=== PATIENT | female | born 2000 | race Caucasian/White ===

== ENCOUNTER 2023-01-12 15:05 | Outpatient (CLI) | payer BC, SELFPAY | END 2023-01-12 15:06 | disposition home or self-care (01) | PROVIDERS: PCP Family Medicine; Visit Provider Family Medicine | DX: F32.A Depression, unspecified (principal); F41.9 Anxiety disorder, unspecified; Z90.411 Acquired partial absence of pancreas | CPT/HCPCS: 82306; 84443 ==

== ENCOUNTER 2023-09-25 11:35 | Outpatient (CLI) | payer BC, SELFPAY | END 2023-09-25 11:36 | disposition home or self-care (01) | LOC: NFLDREF 11:39 | PROVIDERS: PCP Family Medicine; Visit Provider Family Medicine | DX: E78.2 Mixed hyperlipidemia (principal) | CPT/HCPCS: 80061 ==

== ENCOUNTER 2023-12-25 23:21 | Emergency (ER) | payer BC, SELFPAY ==
[2023-12-25 23:29] VITALS: BP 118/83; PULSE 70; RESP 18; TEMP 36.7; O2SAT 97; BMI 36.6
--- NOTE | 2023-12-26 00:05 | ED_ITS ---
HPI - General Adult General Chief complaint: Heartburn/Gastritis Stated complaint: bio reflux-6 days Time Seen by Provider: 12/25/23 23:38 Source: patient Mode of arrival: ambulatory Limitations: no limitations History of Present Illness HPI narrative: 23-year-old female with longstanding history of gastroesophageal reflux disease presents to the emergency department for evaluation of worsening heartburn and gastric reflux with decreased appetite for the last couple of days. No vomiting. No bloody stools. No excessive alcohol intake. No chest pain. Pain starts in the epigastric area, radiates up to the throat. Does not seem to be caused by certain foods. Does take a proton pump inhibitor daily and has done so for the last 8 weeks. Had previously been prescribed this long-term. She reports that she has had stomach issues since she was 8 years old. She had an endoscopy and colonoscopy at age 14. She does not know if she was tested for celiac disease or H pylori at the time but it sounds as though she has had a very comprehensive workup. 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 This was fully resected and she reports that she had a follow-up CT scan 2-3 weeks ago that was normal. She reports that she has had difficulty eating for the last few days and that her gastritis has been more bothersome over the last 6 days. Has not tried taking any new medications to help with her symptoms. No fever, no urinary changes. No recent medication changes. No trauma or injury. Past medical history notable for the gastritis, depression and anxiety, the pancreatic history. She is status post cholecystectomy at the time of her splenectomy and partial pancreatectomy. Home meds accurate as listed per her report. ROS is otherwise positive for symptoms that she thinks could be related to POTS. She is interested in further workup for this. Otherwise benign times 12 systems. Related Data Home Medications Medication Instructions Recorded Confirmed hydroxyzine pamoate 25 mg capsule 25 mg PO BID 01/12/23 12/25/23 polyethylene glycol 3350 17 gram 17 g PO BID 01/12/23 12/25/23 oral powder packet (Miralax) cholecalciferol (vitamin D3) 25 25 mcg PO QDAY 09/25/23 12/25/23 mcg (1,000 unit) capsule sertraline 100 mg tablet 125 mg PO DAILY 11/20/23 02/19/24 omeprazole 20 mg capsule,delayed 20 mg PO DAILY 12/25/23 12/25/23 release Previous Rx's Medication Instructions Recorded famotidine 20 mg tablet (Acid 20 mg PO QHS #30 tabs 12/26/23 Controller) sucralfate 1 gram tablet (Carafate) 1 g PO QID PRN #60 tabs 12/26/23 Allergies Allergy/AdvReac Type Severity Reaction Status Date / Time amoxicillin Allergy Mild Rash Verified 12/25/23 23:37 PFSH PFS Social History Smoking Status: Never smoker Do you use any of these nicotine containing products: None Second hand tobacco smoke exposure: No How often do you have a drink containing alcohol: never AUDIT-C Alcohol total score: 0 Non-prescribed substance use: marijuana (any form) Little interest or pleasure in doing things: nearly every day Feeling down, depressed, or hopeless: nearly every day Exam Const: Vital Signs, click to edit/add: Vital Signs - 24 hr 12/25/23 23:29 Temperature 98.0 F Pulse Rate [Pulse Oximeter] 70 Respiratory Rate 18 Blood Pressure [Ri ght Upper Arm] 118/83 Pulse Oximetry 97 Oxygen Delivery Me thod Room Air Documenting provider has reviewed patient's vital signs: yes Common normals: no apparent distress General appearance: cooperative and well kempt Other: Appears well nourished, well hydrated. HENMT: Common normals: normocephalic and head/scalp atraumatic Head and scalp: normocephalic and atraumatic Face and sinus: normal facial exam Mouth: oral and palatal mucosa normal Throat: posterior oropharynx normal Eye: Common normals: conjunctivae normal General eye: normal appearance of both eyes Conjunctiva: conjunctiva(e) normal Neck & C-Spine: Common normals: full ROM and no lymphadenopathy Resp: Common normals: normal respiratory effort, no use of accessory muscles and clear to auscultation bilaterally Effort & inspection: able to speak in complete sentences Auscultation: clear to auscultation bilaterally Cardio: Common normals: regular rate, regular rhythm, S1 normal heart sound, S2 normal heart sound and no murmurs Rate: regular rate Rhythm: regular rhythm Heart sounds: S1 normal and S2 normal GI: Common normals: Normal to inspection, nondistended, normoactive bowel sounds present, soft to palpation, non-tender, no hepatosplenomegaly and no masses Palpation: soft and no hepatosplenomegaly Extremity: Common normals: normal to inspection, normal capillary refill and no pedal edema Psych: Appearance: well kempt Activity/motor behavior: appropriate eye contact Insight: insight good Judgement: judgment good Other: Seems mildly anxious but otherwise with normal judgment, reasoning and behavior. Skin: Common normals: no rashes or lesions noted General skin exam: no rashes or lesions noted Course Course ED Course: Reported GERD and heartburn with no symptoms of vomiting or signs of evident dehydration on exam. She is quite concerned and has a curious history. Therefore recommend some basic labs including liver function, lipase, metabolic panel, inflammatory markers and CBC. I do suspect that this is gastritis related to heartburn. Will give famotidine, Maalox and Carafate and assess symptom response. There is not seem to be any indication for IV fluids. Await labs. Reevaluation(s) Time of Reevaluation #1: 01:05 Reevaluation #1: Patient informed of reassuring labs. She is feeling better after the famotidine, Maalox and Carafate. We discussed dietary recommendations for gastritis. It does not seem as though this is a big factor for her. Encouraged her to continue her omeprazole in the morning, at in famotidine 20 mg every evening. P.r.n. Carafate discussed. Alarm symptoms reviewed that would warrant ED presentation. Patient will follow-up with primary care provider if symptoms are not markedly improved in a few weeks. She may discontinue the famotidine in a few weeks if she is feeling much better and restarted on an as-needed basis. She should stay on the omeprazole however. See discharge instructions. Vital Signs Vital signs: Initial Vital Signs Temperature 98.0 F 12/25/23 23:29 Temperature Source Temporal Artery Scan 12/25/23 23:29 Pulse Rate 70 12/25/23 23:29 Respiratory Rate 18 12/25/23 23:29 Blood Pressure 118/83 12/25/23 23:29 Blood Pressure Mean 94 12/25/23 23:29 Blood Pressure Position Sitting 12/25/23 23:29 Pulse Oximetry 97 12/25/23 23:29 Oxygen Delivery Method Room Air 12/25/23 23:29 Vital Signs Temperature 98.0 F 12/25/23 23:29 Pulse Rate 70 12/25/23 23:29 Respiratory Rate 18 12/25/23 23:29 Blood Pressure 118/83 12/25/23 23:29 Pulse Oximetry 97 12/25/23 23:29 Oxygen Delivery Method Room Air 12/25/23 23:29 Temperature 98.0 F 12/25/23 23:29 Pulse Rate 70 12/25/23 23:29 Respiratory Rate 18 12/25/23 23:29 Blood Pressure 118/83 12/25/23 23:29 Pulse Oximetry 97 12/25/23 23:29 Oxygen Delivery Method Room Air 12/25/23 23:29 Medications Administered Medications: Discontinued Medications Generic Name Dose Route Start Last Admin Trade Name Freq PRN Reason Stop Dose Admin Famotidine 20 mg 12/26/23 00:01 12/26/23 00:18 Famotidine 20 Mg Tablet PO 12/26/23 00:02 20 mg ONCE ONE Administration Lidocaine/Aluminum/Magnesium/Simeth 15 ml 12/26/23 00:01 12/26/23 00:20 Mag Hydrox/Aluminum Hyd/Simeth 30 Ml Oral.Susp PO 12/26/23 00:02 15 ml ONCE ONE Administration Sucralfate 1 gm 12/26/23 00:01 12/26/23 00:18 Sucralfate 1 Gm Tablet PO 12/26/23 00:02 1 gm ONCE ONE Administration Medical Decision Making Lab Data Lab results reviewed: Yes I reviewed the patient's lab results Lab results narrative: Reassuring. Labs: Lab Results 12/26/23 12/26/23 Range/Units 00:00 00:20 WBC 12.27 H (4.50-11.00) K/uL RBC 4.61 (4.00-5.20) m/uL Hgb 13.3 (12.0-16.0) gm/dL Hct 40.3 (33.0-51.0) % MCV 87 (80-100) fL MCH 29 (26-34) pg MCHC 33 (32-36) gm/dL RDW Coeff of Jaylen 14.7 (11.5-15.5) % Plt Count 498 H (140-440) K/uL Neut % (Auto) 49.7 (42.0-72.0) % Lymph % (Auto) 38.6 (20-44) % [place] % (Auto) 8.5 (0.0-11.0) % Eos % (Auto) 2.3 (0.0-7.0) % Baso % (Auto) 0.7 (0.0-3.0) % Neut # (Auto) 6.10 (1.7-7.0) K/uL Lymph # (Auto) 4.70 H (0.90-2.90) K/uL [place] # (Auto) 1.00 H (0.00-0.90) K/UL Eos # (Auto) 0.30 (0.00-0.50) K/uL Baso # (Auto) 0.10 (0.00-0.30) K/uL Abs Immat Gran (auto) 0.00 (0.00-0.30) K/uL Imm/Tot Granulo (auto) 0.2 % Sodium 140 (135-149) mmol/L Potassium 3.8 (3.6-5.1) mmol/L Chloride 103 (96-114) mmol/L Carbon Dioxide 31 (20-32) mmol/L Anion Gap 6 L (7-15) mEq/L BUN 16 (5-24) mg/dL Creatinine 0.7 (0.5-1.5) mg/dL Estimated Creat Clear 126.09 Estimated GFR 125 ml/min Glucose 100 (60-115) mg/dL Lactate 0.6 (0.5-1.9) mmol/L Calcium 9.7 (8.4-10.6) mg/dL Total Bilirubin 0.3 (0.1-1.5) mg/dL AST 19 (12-35) U/L ALT 17 (4-35) U/L Alkaline Phosphatase 74 (40-150) U/L C-Reactive Protein < 0.5 L (0.5-1.0) mg/dL Total Protein 7.7 (6.0-8.3) g/dL Albumin 4.2 (3.3-5.0) g/dL Lipase 80 (23-300) U/L POC Troponin I 0.00 L (0.01-0.04) ng/ml Discharge Plan Discharge Clinical Impression: GERD with esophagitis Patient Disposition: Home, Self-Care Condition: Improved Instructions: Diet for Stomach Ulcers and Gastritis (ED), GERD (Gastroesophageal Reflux Disease) (DC) Additional Instructions: I am glad the medications were helpful. I am thankful that the labs did not show any signs of inflammation, infection, abnormalities with the liver, pancreas or other organs. This is all reassuring. I would like for you to continue taking your omeprazole every morning. I would like for you to add famotidine 20 mg every evening for the next few weeks. I will also give a prescription for Carafate which is a stomach coding medicine that you can take up to 4 times daily when you have bothersome symptoms from the esophagitis. I am not sure what is making your symptoms flare worse than usual but stress, certain medications, and or unfortunately just aging can make this worse for some people. He certainly do seem to have a history of issues with this. Most people are markedly better with these medications in just a few weeks. If you have not noted marked improvement within 4 weeks, I would recommend that you make a follow-up appointment with her primary care doctor and/or GI specialist for additional testing that I cannot do in the emergency d epartment such as testing for celiac disease, H pylori and or consideration for an endoscopy. It is okay to continue using Maalox or Tums for your symptoms in addition to the medications I have recommended above. If you have bloody stools and or intractable vomiting, abdominal pain that is severe and especially if accompanied by fever, you should come back to the emergency room. Activity Level: No Restrictions Discharge Diet: Regular Prescriptions: New famotidine [Acid Controller] 20 mg tablet 20 mg PO QHS Qty: 30 2RF sucralfate [Carafate] 1 gram tablet 1 g PO QID PRNQty: 60 0RF No Action hydroxyzine pamoate 25 mg capsule 25 mg PO BID Rx Instructions: taking 1/2 tab each morning and once each night polyethylene glycol 3350 [Miralax] 17 gram powder in packet 17 g PO BID sertraline 100 mg tablet 125 mg PO DAILY cholecalciferol (vitamin D3) 25 mcg (1,000 unit) capsule 25 mcg PO QDAY omeprazole 20 mg capsule,delayed release(DR/EC) 20 mg PO DAILY Follow Up/Referrals: Jeff Nicholas MD [Primary Care Provider] - Stand Alone [facility]: [facility] Info Instructions
--- OUTSIDE RECORDS SUMMARY | 2023-12-26 00:16 | XMS_ITS | Data Portability ---
Author Name Unknown Address [address] [place] [address] Phone [phone] Organization [place] [facility], [facility] Address [address] [place] [address] et [address] [place] [address] Care Team Providers Care Gum Mixer Name Role Phone TIFFANIE EDWARDS Referring Provider Assessment No assessment recorded. Plan of Treatment Reminders Order Date Submit Date Provider Last Modified By Organization Details Last Modified Time Details Appointments PHON E FOLL OW UP 2024 07:00A M Clyde Wolf MD Not available Not available Not available Lab None ariella rded . Referral roxy roen tero logi st refe rral - Need s EUS with biop sy of panc reat ic tail pseu docy 2021 022 [facility] - Referrals, [address] [place], [address], 03/30/2022 16:30:43 Procedures None ariella rded . Surgeries None ariella rded . Imaging None ariella rded . Medication Orders None ariella rded . Patient TargetsNo targets recorded. Patient InstructionsNo instructions recorded. 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 [email or web address] Not Available 03/30/2022 14:56:23 03/30/20 22 03/25/2022 MRI, abdom en, w/o contr ast No observ ation record ed. BARCODE Not Available 03/30/2022 12:38:58 05/02/20 23 05/02/2023 CT, abdom en, w/ contr ast No observ ation record ed. [place] [id number] [facility] [address], [place], [address], 05/03/2023 15:04:04 12/11/19 24 12/11/2023 CT, abdom en, w/ contr ast No observ ation record ed. [address], [address], 12/15/2023 12:40:53 Result Notes None recorded. Problems Name Status Onset Date Resolution Date Notes Provider Name and Address Organization Details Recorded Time Gallstone Active ABDON méndez [facility] 03/30/2022 10:20:44 Problem Notes None recorded. Procedures Surgical History Date Name Laterality Status Provider Name and Address Organization Details Recorded Time incision of lingual frenum completed OPAL Santos [facility] 03/30/2022 10:22:35 excision of lymphangioma completed ABDON méndez [facility] 03/30/2022 10:23:02 Imaging Results Imaging Date Name Status LastModified by [facility] Details LastModified Time 03/22/2022 CT, abdomen + pelvis, w/ contrast completed [email or web address] Information not available 03/30/2022 14:56:23 03/25/2022 MRI, abdomen, w/o contrast completed BARCODE Information not available 03/30/2022 12:38:58 05/02/2023 CT, abdomen, w/ contrast completed [address] [facility] [address], [place], [address], 05/03/2023 15:04:04 12/11/2023 CT, abdomen, w/ contrast completed [address], [address], 12/15/2023 12:40:53 Procedure Notes None recorded. Medical Equipment None Reported. Allergies No known drug allergies Medications Name Sig Start Date Stop Date Status Note LastModified by Organization Details LastModified Time sa3gm form20 pg15 etoh70% APPLY TO WARTS AT BEDTIME NEEDED. FILE 2- 3 TIMES PER WEEK WITH ROSA ISELA STONE. active Not Available Not Available No t Available sertraline 100 mg tablet TAKE 1 TABLET BY MOUTH EVERY DAY active Not Available Not Available No t Available omeprazole 40 mg capsule,delay ed release Take 1 capsule twice a day by oral route before meals for 30 days. active Not Available Not Available No t Available tramadol 50 mg tablet TAKE 1 TO 2 TABLETS BY MOUTH EVERY 4 TO 6 HOURS NEEDED FOR PAIN. MAX 8 TABLET / 24 HOURS active Not Available Not Available No t Available omeprazole 20 mg capsule,delay ed release active Not Available Not Available N ot Available hydroxyzine HCl 25 mg tablet TAKE 1/2 TO 1 TABLET BY MOUTH TWICE DAILY NEEDED active Not Available Not Available No t Available Vitals Date Recorded Body height Body mass index (BMI) Body weight Body temperature Heart rate Systolic blood pressure Diastolic blood pressure Provider Name and Address Organization Details Last Updated DateTime 172.72 cm 30.1 kg/m2 61894.2 9 g 98.6 [degF] 100 /min 124 mm[Hg] 59 mm[Hg] ABDON méndez [place] [facility] 10:20:18 Social History Question Answer Notes LastModified by [email or web address] Details LastModified Time Tobacco Smoking Status Never Smoker ABDON méndez [facility] 03/30/2022 10:22:14 What Is Your Level Of Alcohol Consumption? Occasional [email or web address] Information not available 03/30/2022 Are You Currently Employed? No [email or web address] Information not available 03/30/2022 What Is Your Relationship Status? Single [email or web address] Information not available 03/30/2022 Do You Use Any Illicit Or Recreational Drugs? No [email or web address] Information not available 03/30/2022 Has Tobacco Cessation Counseling Been Provided? No [email or web address] Information not available 03/30/2022 Are You Currently In School? Yes [email or web address] Information not available 03/30/2022 Do You Or Have You Ever Used Any Other Forms Of Tobacco Or Nicotine? No [email or web address] Information not available 03/30/2022 Sex: Female Functional Status None recorded. Mental Status None recorded. Family History Relationship Description Onset Age of this Age Resolved Age Notes Paternal Grandfather Heart disease Mother Diabetes mellitus Father Diabetes mellitus Medical History Condition Response Anxiety Disorder Y Seasonal allergies/Hayfever Y Reflux/GERD Y Gynecological HistoryNo gynecological history recorded. Obstetrics History GPAL:G 0 P 0 0 0 0 Past Encounters Encounter ID Performer Location Encounter Start Date Encounter Closed Date Diagnosis/Indication [id number] Clyde Wolf MD Main Office [address] [place] [id number] 03/30/2022 09:35:24 04/19/2022 17:21:55 Gallstone Cholelithiasis without obstruction Cyst of pancreas [id number] Clyde Wolf MD Main Office [address] [place] [phone] 05/04/2022 08:29:03 05/16/2022 19:12:46 [id number] Clyde Wolf MD Main Office [address] [place] [id number] 07/07/2022 09:44:46 07/07/2022 22:03:05 Mass of pancreas Health Concerns Section Related Observation LastModified by Organization Detai ls LastModified Time None Recorded Concern Status LastModified by Organization Details LastModified Time None Recorded Advance Directives Directive None Recorded Payers Encounter Date Sequence Insurance Name Policy Number Policy Domingo Covered Member ID Domingo Member ID Guarantor Name 07/07/2022 1 [employer] [id number] Courtney E Post [id number] Shayla C Post 05/04/2022 1 [employer] [id number] Courtney E Post [id number] Shayla C Post 03/30/2022 1 [place] [id number] Courtney E Post [id number] Shayla C Post Notes Date Note Type Note Provider Name and Address Organization Details Recorded Time 03/30/2022 text/html HPI Notes: Rey bullock is a 21 YOF, who presents for abdominal pain and bloating for 1-2 months. She has had this for much longer but it is intermittent and it has been much more constant over the past month. This is mainly in the epigastric area. It waxes and wanes and seems to be worse in the evening and after meals. She is tolerating a limited variety of foods. The discomfort is crampy dull and pressure-like up to 6/10 in intensity. She is having some harder stools and occasional pain with bowel movements. No diarrhea. Her mother who is a nurse, reports she has always had GI issues since . She had endoscopies as a young child and was told her transverse colon doesn't move well. There is no family history of inflammatory bowel disease or Crohn's or celiac as far as she knows. She adds that she takes long-term MiraLax. 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 MRI recommended. MRI on 03/25/2022, revealed a circumscribed 3.3 cm cystic lesion in the pancreatic tail with layering debris and enhancing septa. 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 It also revealed cholelithiasis without evidence of cholecystitis. Shayla denies any etoh abuse. Her lipid profile is essentially normal. She denies any history of pancreatitis that she knows of. 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 She would really like to be feeling better before this. Clyde Wolf MD [address], [place], [address], [facility] 03/31/2022 06:55:49 07/07/2022 text/html HPI Notes: Post- Op - GSA Reported by patient. Onset/Timing: date of surgery: (06/24/22) Quality: procedure: (robot assist distal pancreatectomy and splenectomy) Context: operative findings: (large very distal tip of pancreas mass involving splenic vessels anteriorly); pathology findings: (T3N0 solid pseudopapillary neoplasm - concern that some cells involved anterior margin but this is related to my initial dissection between the mass and the splenic vessels - this was aborted and a wide margin obtained grossly.) Associated Symptoms: incision healing well; no fatigue; normal appetite; normal bowel function; no constipation; no nausea; no emesis; pain improving; no pain; no fever; no bleeding; no lower extremity edema/pain; no dysuria/urinary symptoms Work status working multimedia artist Clyde Wolf MD [address], [place], [address], [facility] 07/07/2022 22:03:03 OBGyn Episode No OBEpisode recorded.
[2023-12-26] MEDS: FAMOTIDINE 20 MG TABLET PO (00:18)
[2023-12-26] MEDS: SUCRALFATE 1 GM TABLET PO (00:18)
[2023-12-26] MEDS: MAG HYDROX/ALUMINUM HYD/SIMETH 30 ML ORAL.SUSP 15 ML PO (00:20)
[2023-12-26 00:31] LABS: Lactate* 0.6 mmol/L (0.5-1.9)
[2023-12-26 00:33] LABS: Basophils Percent Auto 0.7 % (0.0-3.0); Eosinophils Percent Auto 2.3 % (0.0-7.0); Hematocrit 40.3 % (33.0-51.0); Hemoglobin* 13.3 gm/dL (12.0-16.0); Immature Granulocytes Pct Auto 0.2 %; Lymphocytes Percent Auto 38.6 % (20-44); Mean Corpuscular HGB Conc 33 gm/dL (32-36); Mean Corpuscular Hemoglobin 29 pg (26-34); Mean Corpuscular Volume 87 fL (80-100); Monocytes Percent Auto 8.5 % (0.0-11.0); Neutrophils Percent Auto 49.7 % (42.0-72.0); Platelet Count* 498 K/uL (140-440); RDW Coefficient of Variation % 14.7 % (11.5-15.5); Red Blood Count 4.61 m/uL (4.00-5.20); White Blood Count* 12.27 K/uL (4.50-11.00)
[2023-12-26 00:34] LABS: Slide Review Reflex No
[2023-12-26 00:53] LABS: Albumin* 4.2 g/dL (3.3-5.0); Chloride* 103 mmol/L (96-114); Sodium* 140 mmol/L (135-149)
[2023-12-26 00:54] LABS: Potassium* 3.8 mmol/L (3.6-5.1)
[2023-12-26 00:56] LABS: Creatinine* 0.7 mg/dL (0.5-1.5); Est. Creatinine Clearance* 126.09; Estimated Glomerular Filt Rate 125 ml/min
[2023-12-26 00:57] LABS: Alanine Aminotransferase* 17 U/L (4-35); Alkaline Phosphatase* 74 U/L (40-150); Anion Gap 6 mEq/L (7-15); Aspartate Amino Transferase* 19 U/L (12-35); Bilirubin Total* 0.3 mg/dL (0.1-1.5); Blood Urea Nitrogen* 16 mg/dL (5-24); Calcium* 9.7 mg/dL (8.4-10.6); Carbon Dioxide* 31 mmol/L (20-32); Glucose* 100 mg/dL (60-115); Lipase* 80 U/L (23-300); Total Protein* 7.7 g/dL (6.0-8.3)
[2023-12-26 01:00] LABS: C Reactive Protein* < 0.5 mg/dL (0.5-1.0)
== END 2023-12-26 01:29 | disposition home or self-care (01) ==
PROVIDERS: Emergency Provider Family Medicine; PCP Family Medicine
DX: K21.00 Gastro-esophageal reflux disease with esophagitis, without bleeding (principal)
CPT/HCPCS: 36415; 80053; 83605; 83690; 84484; 85025; 86140; 99283; 99284; A9270